=== PATIENT | male | born 1980 | race African-American/Black ===

== ENCOUNTER 2019-03-28 11:25 | Emergency (ER) | payer OTHER ==
[~2019-03-28] VITALS: Ht 182.9 cm; Wt 112.0 kg
[~2019-03-28 11:25] MED LIST: ZYRTEC
[2019-03-28 11:49] LABS: ABSOLUTE NEUTROPHILS 3.1 thou/uL (1.4-8.2); BASOPHILS 2.8 % (0.0-2.0); EOSINOPHILS 2.2 % (0.0-3.0); HEMATOCRIT 49.1 % (42.0-52.0); HEMOGLOBIN 16.4 gm/dL (14.0-18.0); LYMPHOCYTES 29.1 % (24.0-44.0); MCHC 33.3 g/dL (28.0-37.0); MCV 93.1 fL (80.0-100.0); MONOCYTES 8.4 % (1.0-8.0); POLYS 57.5 % (36.0-66.0); RBC 5.28 mil/uL (4.50-6.00); RDW 13.8 % (10.5-14.5); WBC 5.3 thou/uL (4.0-11.0)
[2019-03-28 12:00] LABS: ANION GAP 8 mmol/L (7-16); BUN 11 mg/dL (7-18); CALCIUM 9.2 mg/dL (8.5-10.1); CHLORIDE 105 mmol/L (98-107); CO2 26 mmol/L (21-32); CREATININE 1.1 mg/dL (0.7-1.3); GLUCOSE 92 mg/dL (74-106); POTASSIUM 4.6 mmol/L (3.5-5.1); SODIUM 139 mmol/L (136-145)
[2019-03-28 12:01] LABS: APTT 29.6 Seconds (24.5-32.8); INR 1.1; PROTIME 11.4 Seconds (9.3-11.4)
[2019-03-28 12:06] LABS: DIRECT BILIRUBIN < 0.1 mg/dL (<0.1-0.3); SGOT 17 U/L (15-37); SGPT 23 U/L (30-65); TOTAL BILIRUBIN 0.3 mg/dL (<0.1-1.0); TOTAL PROTEIN 7.6 g/dL (6.4-8.2)
[2019-03-28 13:31] LABS: PLATELET COUNT 198 thou/uL (150-400)
[2019-03-28] MEDS ORDERED: SENNA-DOCUSATE1 EAC1 PO (15:55)
[2019-03-28] MEDS ORDERED: IBUPROFEN 600600 M1 PO (15:55)
[2019-03-28] MEDS ORDERED: PERCOCET 5-3251 EACH PO (15:55)
[2019-03-28] MEDS ORDERED: FLEXERIL PO (15:55)
[2019-03-28 16:09] VITALS: BP 162/88
== END 2019-03-28 16:09 | disposition home or self-care (01) ==
LOC: ER 11:25
PROVIDERS: Emergency Medicine
DX: S30.0XXA Contusion of lower back and pelvis, initial encounter (principal); S09.8XXA Other specified injuries of head, initial encounter; J45.909 Unspecified asthma, uncomplicated; Z88.8 Allergy status to other drugs, medicaments and biological substances; W17.89XA Other fall from one level to another, initial encounter; Y93.89 Activity, other specified; Y92.89 Other specified places as the place of occurrence of the external cause; Y99.8 Other external cause status

== ENCOUNTER 2020-12-14 15:35 | Emergency (ER) | payer OTHER ==
[~2020-12-14] VITALS: Ht 182.9 cm; Wt 113.4 kg
[~2020-12-14 15:35] MED LIST changes: +FLEXERIL PO; +IBUPROFEN 600600 M1 PO; +PERCOCET 5-3251 EACH PO; +SENNA-DOCUSATE1 EAC1 PO
[2020-12-14 15:40] VITALS: BP 144/94
[2020-12-14 16:43] LABS: ABSOLUTE NEUTROPHILS 2.5 thou/uL (1.4-8.2); BASOPHILS 0.4 % (0.0-2.0); EOSINOPHILS 2.3 % (0.0-3.0); HEMATOCRIT 45.1 % (42.0-52.0); HEMOGLOBIN 14.8 gm/dL (14.0-18.0); LYMPHOCYTES 40.4 % (24.0-44.0); MCHC 32.9 g/dL (28.0-37.0); MCV 91.2 fL (80.0-100.0); MONOCYTES 6.3 % (1.0-8.0); PLATELET COUNT 191 thou/uL (150-400); POLYS 50.6 % (36.0-66.0); RBC 4.94 mil/uL (4.50-6.00); RDW 12.5 % (10.5-14.5); WBC 4.9 thou/uL (4.0-11.0)
[2020-12-14 16:47] LABS: ANION GAP 8 mmol/L (7-16); BUN 13 mg/dL (7-18); CALCIUM 8.4 mg/dL (8.5-10.1); CHLORIDE 105 mmol/L (98-107); CO2 25 mmol/L (21-32); CREATININE 1.1 mg/dL (0.7-1.3); GLUCOSE 108 mg/dL (74-106); POTASSIUM 3.5 mmol/L (3.5-5.1); SODIUM 138 mmol/L (136-145)
[2020-12-14 16:57] LABS: ALBUMIN 3.6 g/dL (3.4-5.0); SGOT 24 U/L (15-37); SGPT 29 U/L (16-63); TOTAL BILIRUBIN 0.6 mg/dL (0.2-1.0); TOTAL PROTEIN 6.9 g/dL (6.4-8.2); TROPONIN-I <0.06 ng/mL (<0.06)
[2020-12-14] MEDS ORDERED: MOBIC7.5 MG PO (18:54)
[2020-12-14] MEDS ORDERED: TAMIFLU75 MG PO (18:54)
== END 2020-12-14 19:40 | disposition home or self-care (01) ==
LOC: ER 15:35
PROVIDERS: Physician Assistant
DX: J02.9 Acute pharyngitis, unspecified (principal); Z20.828 Contact with and (suspected) exposure to other viral communicable diseases; J45.909 Unspecified asthma, uncomplicated; Z88.5 Allergy status to narcotic agent